=== PATIENT | female | born 1955 | race Caucasian/White ===

== ENCOUNTER 2017-08-22 14:32 | Emergency (ER) | payer OTHER ==
[~2017-08-22] VITALS: Ht 170.2 cm; Wt 52.2 kg
--- NOTE | 2017-08-22 14:51 | NUR ---
DR RICKETTS AT THE BEDSIDE FOR EVAL AND EXAM.
[2017-08-22] MEDS ORDERED: IBUPROFEN 600 MG TABLET PO ONE (15:00)
[2017-08-22] MEDS ORDERED: IBUPROFEN 600 MG TABLET ONE (15:13)
[2017-08-22] MEDS ORDERED: KETOROLAC TROMETHAMINE 30 MG INJ IM ONE (16:30)
[2017-08-22 16:45] VITALS: BP 129/64
[2017-08-22] MEDS ORDERED: KETOROLAC TROMETHAMINE 30 MG INJ ONE (16:48)
--- NOTE | 2017-08-22 17:28 | NUR ---
Patient discharged to home in stable conditon. Written and verbal after care instructions given. Patient verbalizes understanding of instructions.
== END 2017-08-22 17:28 | disposition home or self-care (01) ==
LOC: ER 14:33
DX: S20.219A Contusion of unspecified front wall of thorax, initial encounter (principal); S80.01XA Contusion of right knee, initial encounter; S80.02XA Contusion of left knee, initial encounter; Z88.0 Allergy status to penicillin; V43.62XA Car passenger injured in collision with other type car in traffic accident, initial encounter; Y93.89 Activity, other specified; Y92.413 State road as the place of occurrence of the external cause; Y99.8 Other external cause status
CPT/HCPCS: 71010; A4663; J1885